=== PATIENT | female | born 1980 | race Caucasian/White ===

== ENCOUNTER → 2024-08-26 09:33 | Outpatient (BNVA) | payer OTHER, SELFPAY | PROVIDERS: Visit Provider Physician Assistant | DX: S46.912A Strain of unspecified muscle, fascia and tendon at shoulder and upper arm level, left arm, initial encounter (principal); S86.912A Strain of unspecified muscle(s) and tendon(s) at lower leg level, left leg, initial encounter; W51.XXXA Accidental striking against or bumped into by another person, initial encounter; R20.0 Anesthesia of skin | CPT/HCPCS: 99203 ==